=== PATIENT | female | born 1975 | race Caucasian/White ===

== ENCOUNTER 2018-02-11 12:23 | Emergency (ER) | payer OTHER ==
[2018-02-11 12:56] LABS: Pregnancy Test - Urine (BHCG) Negative (Negative); Pregu Control Background? CLEAR/WHITE (CLR/WHITE); Pregu Control Bar Appear? YES (CONTROL BAR)
[2018-02-11 12:57] LABS: Bilirubin Small (Negative); Blood, Urine Small (Negative); Clarity Slightly Cloudy (Clear); Glucose, Urine (Dipstick) Negative (Negative); Leukocyte Trace (Negative); Nitrite Negative (Negative); Protein, Urine (Dipstick) Negative (Neg-Trace); Urobilinogen 0.2 mg/dL (0.2-1.0); pH, Urine 5.5 (5.0-9.0)
[2018-02-11 12:59] LABS: Bacteria/HPF 1+ HPF (None Seen); RBC/HPF 0-3 HPF (0-3)
[2018-02-11] MEDS ORDERED: Ketorolac Tromethamine 60 MG/2 ML VIAL ONE (13:25)
--- NOTE | 2018-02-11 15:42 | RAD ---
CHEST PA AND LATERAL: HISTORY: A 42-year-old female with a history of pain. FINDINGS: Artifact over the apices is presumably from the patient's hair. Heart size is normal. Mild increase in linear and interstitial markings bilaterally. NO confluent pneumonia, overt edema, or pleural ef fusion. IMPRESSION: Mild increased interstitial markings bilaterally. No evidence of pneumonia, edema, pleural effusion, or other acute process. POS: [facility]
== END 2018-02-11 13:54 | disposition home or self-care (01) ==
LOC: SCSER 12:23
DX: N39.0 Urinary tract infection, site not specified (principal); E03.9 Hypothyroidism, unspecified; R82.71 Bacteriuria; Z79.899 Other long term (current) drug therapy
CPT/HCPCS: 71046; 81003; 81015; 81025; 87086; 96372; J1885